=== PATIENT | male | born 1965 | race Caucasian/White ===

== ENCOUNTER 2019-03-05 14:20 | Emergency (ER) | payer OTHER ==
[~2019-03-05] VITALS: Ht 175.3 cm; Wt 106.6 kg
[~2019-03-05 14:20] MED LIST: ALBU90OI INH; Artificial Tea1 EACH BOTHEYES; CYCL10 PO; ERYT.5TO RIGHTEYE; Flonase 0.05% N16 GM; IBUP600 PO; LORA10 PO; Norco 5-325 Ta1 EACH PO; Prilosec Otc20 MG
[2019-03-05] MEDS ORDERED: NAPR550 PO (16:45)
[2019-03-05] MEDS ORDERED: Robaxin500 MG PO (16:45)
== END 2019-03-05 16:53 | disposition home or self-care (01) ==
LOC: ER 14:20
DX: S50.02XA Contusion of left elbow, initial encounter (principal); M62.830 Muscle spasm of back; W11.XXXA Fall on and from ladder, initial encounter
CPT/HCPCS: 72070; 72100; 73080; 96372; 99283-25; J1885